=== PATIENT | female | born 1955 | race American Indian/Alaskan Native ===

== ENCOUNTER 2017-11-22 12:08 | Outpatient (CLI) | payer OTHER ==
--- NOTE | 2017-11-22 23:12 | XRay Report ---
FINAL REPORT PROCEDURE: XR SPINE LUMBOSACRAL 4+V TECHNIQUE: Lumbar spine radiographs, including AP, lateral, and lateral flexion-extension views. HISTORY: LOW BACK PAIN COMPARISON: No prior studies are available for comparison. FINDINGS: Alignment: The alignment is normal. There is adequate motion in flexion and extension. Vertebral body heights/Disk spaces: The heights of the vertebral bodies and the disc spaces are maintained. Minimal spur formation off the vertebral bodies is noted. Fracture(s): None. Facets: Normal. Bone mineralization: Normal. IMPRESSION: There is no evidence of an acute fracture or dislocation. Minimal lumbar spondylosis.
--- NOTE | 2017-11-22 23:16 | XRay Report ---
FINAL REPORT PROCEDURE: XR SPINE THORACIC 2V TECHNIQUE: Thoracic spine radiographs including AP, lateral, and Swimmer's views. CPT 63345 HISTORY: THORACIC BACK PAIN COMPARISON: No prior studies are available for comparison. FINDINGS: Alignment: Normal . Vertebral body height: The heights of the vertebral bodies are maintained. There is mild spur formation off of the vertebral bodies at all levels.. Disk spaces: Normal . Fracture(s): None . Bone mineralization: Normal . IMPRESSION: No acute fracture or dislocation. Mild thoracic spondylosis..
== END 2017-11-22 12:09 | disposition home or self-care (01) ==
LOC: SPVIMAG 12:08
PROVIDERS: ATTEND Physical Medicine & Rehabilitation
DX: M47.895 Other spondylosis, thoracolumbar region (principal); M53.85 Other specified dorsopathies, thoracolumbar region
CPT/HCPCS: 72070; 72110

== ENCOUNTER 2020-12-12 07:14 | Emergency (ER) | payer SELFPAY | END 2020-12-12 20:56 | disposition home or self-care (01) | LOC: ED 07:14 | CPT/HCPCS: 36415; 70450; 71045; 74177; 80053; 81001; 82140; 85025; 87040; 93005; 96361; 96372; 96374; 99285; J1200; J1630; J7030; Q9967 ==